=== PATIENT | male | born 1965 ===

== ENCOUNTER 2024-06-26 17:38 | Outpatient (REF) | payer MEDICAID, SELFPAY ==
[2024-06-26 16:47] LABS: Abs Immature Grans 0.02 10^3/uL (0.0-0.06); Absolute Basophil Count 0.04 10^3/uL (0.0-0.2); Absolute Eosinophil Count 0.08 10^3/uL (0.0-0.7); Absolute Lymphocyte Count 1.76 10^3/uL (1.2-3.4); Absolute Monocyte Count 0.42 10^3/uL (0.1-0.8); Absolute Neutrophil Count 2.94 10^3/uL (1.2-6.7); Basophils % 0.8 %; Eosinophils % 1.5 %; HCT 47.1 % (40.0-50.0); Immature Grans % 0.4 %; Lymphocytes % 33.5 %; MCH 30.6 pg (27.0-33.0); MCV 90 fL (80-95); MPV 11.7 fL (8.0-11.0); Neutrophils % 55.8 %; Platelet Count 170 10^3/uL (130-400); RBC 5.23 10^6/uL (4.36-5.78); RDW 13.5 % (11.8-14.1); WBC 5.26 10^3/uL (4.4-10.8)
[2024-06-26 16:56] LABS: ALT 46 U/L (16-63); AST 38 U/L (15-37); Albumin 4.2 g/dL (3.4-5.0); Alkaline Phosphatase 151 U/L (46-116); Anion Gap 10.5 mmol/L (3-11); BUN 13 mg/dL (7-18); Bilirubin, Total 1.1 mg/dL (0.2-1.0); CO2 25.5 mmol/L (21.0-32.0); CREATININE 0.9 mg/dL (0.70-1.30); Chloride 104 mmol/L (98-107); Glucose 218 mg/dL (74-106); Potassium 4.5 mmol/L (3.5-5.1); Sodium 140 mmol/L (136-145); Total Protein 7.2 g/dL (6.4-8.2)
[2024-06-26 17:08] LABS: Calculated LDL 103 mg/dL (<100); Cholesterol 179 mg/dL (<200); HDL Cholesterol 43 mg/dL (>or=40); Triglyceride 169 mg/dL (<150)
== END 2024-06-26 17:39 | disposition home or self-care (01) ==
LOC: NCHCN 17:38
PROVIDERS: Visit Provider Family Medicine
DX: E78.5 Hyperlipidemia, unspecified (principal)
CPT/HCPCS: 80053; 80061; 85025

== ENCOUNTER 2024-07-10 17:03 | Outpatient (REF) | payer MEDICAID, SELFPAY ==
[2024-07-10 21:29] LABS: COMMENT (LAB VIEW ONLY) 244.16 mg/dL; Microalb ug/mg Crea 7.2 ug/mg Cr
== END 2024-07-10 17:04 | disposition home or self-care (01) ==
LOC: NCHCN 17:03
PROVIDERS: Visit Provider Family Medicine
DX: E11.9 Type 2 diabetes mellitus without complications (principal)
CPT/HCPCS: 82043; 82570